=== PATIENT | female | born 1990 | race American Indian/Alaskan Native ===

== ENCOUNTER 2017-02-15 16:15 | Emergency (ER) | payer OTHER ==
--- NOTE | 2017-02-15 16:26 | Emergency Department Report ---
Chief Complaint: Dyspnea/Respdistress Stated Complaint: SOB Time Seen by Provider: 02/15/17 16:22 - HPI History of Present Illness: PT crying and states that she can not breath. PT talking on the phone. - ROS Review of Systems: + dizziness + anxiety + fatigue - Exam Physical Exam: PT hyperventilating and crying MSE screening note: Focused history and physical exam performed. Due to findings the following was ordered: ekg, xr, labs ED Disposition for MSE Condition: Stable
[2017-02-15 16:28] VITALS: BP 159/104
[2017-02-15 17:09] LABS: Basophils % (Auto) 0.4 % (0.0-1.8); Eosinophils % (Auto) 2.8 % (0.0-4.3); Hematocrit 41.1 % (30.3-42.9); Hemoglobin 13.7 gm/dl (10.1-14.3); Mean Corpuscular HGB Conc 33 % (30-34); Mean Corpuscular Hemoglobin 27 pg (28-32); Mean Corpuscular Volume 80 fl (79-97); Platelet Count 242 K/mm3 (140-440); Red Blood Count 5.14 M/mm3 (3.65-5.03); Red Cell Distribution Width 14.4 % (13.2-15.2); White Blood Count 7.4 K/mm3 (4.5-11.0)
[2017-02-15 18:09] LABS: Alanine Aminotransferase 17 units/L (7-56); Albumin 3.8 g/dL (3.9-5); Albumin/Globulin Ratio 0.9 %; Alkaline Phosphatase 72 units/L (35-129); Anion Gap 19 mmol/L; BUN/Creatinine Ratio 18.57; Blood Urea Nitrogen 13 mg/dL (7-17); Calcium 8.9 mg/dL (8.4-10.2); Carbon Dioxide 24 mmol/L (22-30); Chloride 96.3 mmol/L (98-107); Glucose 82 mg/dL (65-100); Sodium 135 mmol/L (137-145); Total Protein 7.9 g/dL (6.3-8.2)
--- NOTE | 2017-02-16 07:39 | XRay Report ---
ROUTINE CHEST, TWO VIEWS: HISTORY: chest pain. The trachea, heart, mediastinal contour, lung sheppard and bony thorax are unremarkable. IMPRESSION: Unremarkable chest x-ray.
--- NOTE | 2017-02-16 15:06 | ED Elopement Review ---
ED Pt Elopement review - Results review Lab results: Laboratory Tests 02/15/17 02/15/17 02/15/17 16:58 16:58 16:58 WBC 7.4 RBC 5.14 H Hgb 13.7 Hct 41.1 MCV 80 MCH 27 L MCHC 33 RDW 14.4 Plt Count 242 Lymph % (Auto) 24.5 [place] % (Auto) 10.0 H Eos % (Auto) 2.8 Baso % (Auto) 0.4 Lymph # 1.8 [place] # 0.7 Eos # 0.2 Baso # 0.0 Seg Neutrophils % 62.3 Seg Neutrophils # 4.6 Sodium 135 L Potassium 4.0 Chloride 96.3 L Carbon Dioxide 24 Anion Gap 19 BUN 13 Creatinine 0.7 Estimated GFR > 60 BUN/Creatinine Ratio 18.57 Glucose 82 Calcium 8.9 Total Bilirubin 0.50 AST 17 ALT 17 Alkaline Phosphatase 72 Troponin T < 0.010 Total Protein 7.9 Albumin 3.8 L Albumin/Globulin Ratio 0.9 HCG, Qual 02/15/17 16:58 WBC RBC Hgb Hct MCV MCH MCHC RDW Plt Count Lymph % (Auto) [place] % (Auto) Eos % (Auto) Baso % (Auto) Lymph # [place] # Eos # Baso # Seg Neutrophils % Seg Neutrophils # Sodium Potassium Chloride Carbon Dioxide Anion Gap BUN Creatinine Estimated GFR BUN/Creatinine Ratio Glucose Calcium Total Bilirubin AST ALT Alkaline Phosphatase Troponin T Total Protein Albumin Albumin/Globulin Ratio HCG, Qual Negative - Call Back decision Pt Call Back Decision: Call pt to return to ED [facility] (shortness of breath with tachycardia should be further evaluated)
== END 2017-02-16 00:20 | disposition left against medical advice (07) ==
LOC: EDBD 16:15 → ED 16:15
DX: R06.02 Shortness of breath (principal); Z53.21 Procedure and treatment not carried out due to patient leaving prior to being seen by health care provider
CPT/HCPCS: 36415; 71020; 80053; 84484; 84703; 85025; 93005; 93010